=== PATIENT | female | born 1975 | race Caucasian/White ===

== ENCOUNTER 2016-08-09 10:30 | Emergency (ER) | payer OTHER ==
[~2016-08-09] VITALS: Ht 172.7 cm; Wt 90.9 kg
[2016-08-09 10:32] VITALS: BP 145/90; PULSE 92; RESP 24; TEMP 97.4; O2SAT 98
[2016-08-09 11:56] VITALS: BP 122/91; PULSE 88; RESP 18; O2SAT 100
[2016-08-09] MEDS ORDERED: SODIUM CHLOR 0.9% 1000 ML INJ 1,000 ML IV SCH (11:57)
[2016-08-09] MEDS ORDERED: ONDANSETRON HCL 4 MG/2 ML VIAL IVP ONE (12:00)
[2016-08-09] MEDS ORDERED: MORPHINE SULFATE 4 MG/ML INJ IV PUSH ONE (12:00)
[2016-08-09] MEDS ORDERED: SODIUM CHLORIDE 0.9% FLUSH 10 ML FLUSH IV FLUSH PRN (12:00)
--- NOTE | 2016-08-09 12:06 | PD ---
HPI Chief Complaint: Flank/Kidney Pain Time Seen by Provider: 11:50 Travel History International Travel<30 days: No Contact w/Intl Traveler<30days: No Traveled to known affect area: No History of Present Illness HPI The patient is a 41-year-old female who presents to the emergency department complaining of left flank pain. The patient states she developed left flank pain 1 week ago, had an outpatient CT of her abdomen and pelvis performed, however, does not know the results. The patient developed increasing left flank pain earlier today with nausea and vomiting. The pain is located over the left flank, radiates into the left groin, and is associated with mild dysuria. The patient states she had hematuria last week, denies any current hematuria. Patient's last menstrual cycle was 2 weeks ago, she denies . The patient's pain is moderate, sharp, without any alleviating or exacerbating factors. The patient's urologist is Dr. Stone. The patient does complain of clear vaginal discharge. PFSH Past Medical History Asthma: No Anxiety: Yes Depression: No Heart Rhythm Problems: No Cancer: Yes High Cholesterol: No Chemotherapy: No Chest Pain: No Congestive Heart Failure: No COPD: No Cerebrovascular Accident: No Diabetes: No (GESTATIONAL ONLY) Diminished Hearing: No Endocrine: Yes (HYPER PARATHYROID) Gastrointestinal Disorders: No GERD: No Genitourinary: Yes (KIDNEY STONES) Headaches: No Hepatitis: No Hiatal Hernia: No Hypertension: No Immune Disorder: No Implanted Vascular Access Dvce: No Kidney Stones: Yes Musculoskeletal: Yes (left shoulder sx) Neurologic: No Psychiatric: Yes (CLAUSTROPHOBIC) Reproductive: No Respiratory: Yes (CHILDHOOD ASTHMA) Immunizations Current: No Migraines: No Radiation Therapy: No Renal Failure: No Seizures: No Sleep Apnea: No Thyroid Disease: No Ulcer: No Tetanus Vaccination: < 5 Years Influenza Vaccination: No ?: Not LMP: 07/29/2016 Menopausal: No : 2 Para: 2 Miscarriage: 0 : 0 Past Surgical History Abdominal Surgery: No AICD: No Cardiac Surgery: No Ear Surgery: No Endocrine Surgery: Yes (parathyroid and half of thyroid removed) Eye Surgery: No Genitourinary Surgery: Yes (lithotripsy) Gynecologic Surgery: No Joint Replacement: No Neurologic Surgery: No Oral Surgery: Yes (TONSILLECTOMY) Pacemaker: No Thoracic Surgery: No Tonsillectomy: Yes Other Surgery: Yes (tonsilectomy ) Social History Alcohol Use: No Tobacco Use: No Substance Use: No Allergies-Medications (Allergen,Severity, Reaction): Coded Allergies: No Known Allergies (Unverified , 08/09/16) Reported Meds & Prescriptions Reported Meds & Active Scripts Active No Active Prescriptions or Reported Medications Review of Systems Except as stated in HPI: all other systems reviewed are Neg General / Constitutional: No: Fever Cardiovascular: No: Chest Pain or Discomfort Respiratory: No: Shortness of Breath Gastrointestinal: Positive: Nausea, Vomiting, Abdominal Pain, No: Diarrhea Genitourinary: Positive: Dysuria, Flank Pain Skin: No Rash Physical Exam Narrative GENERAL: Awake, alert, pleasant 41-year-old female who appears her stated age and is in no acute respiratory distress. SKIN: Focused skin assessment warm/dry. HEAD: Atraumatic. Normocephalic. EYES: Pupils equal and round. No scleral icterus. No injection or drainage. ENT: No nasal bleeding or discharge. Mucous membranes pink and moist. NECK: Trachea midline. No JVD. CARDIOVASCULAR: Regular rate and rhythm. No murmur appreciated. RESPIRATORY: No accessory muscle use. Clear to auscultation. Breath sounds equal bilaterally. GASTROINTESTINAL: Abdomen soft, mild tenderness left lower quadrant and left flank. No rebound tenderness. Back: Mild left CVA tenderness. MUSCULOSKELETAL: No obvious deformities. No clubbing. No cyanosis. No edema. NEUROLOGICAL: Awake and alert. No obvious cranial nerve deficits. Motor grossly within normal limits. Normal speech. PSYCHIATRIC: Appropriate mood and affect; insight and judgment normal. Data Data Last Documented VS Vital Signs Date Time Temp Pulse Resp B/P Pulse Ox O2 Delivery O2 Flow Rate FiO2 08/09/16 12:12 18 100 Room Air 08/09/16 11:56 88 122/91 08/09/16 10:32 97.4 Orders Complete Blood Count With Diff (08/09/16 11:57) Comprehensive Metabolic Panel (08/09/16 11:57) Lipase (08/09/16 11:57) Lactic Acid (08/09/16 11:57) Urinalysis - C+S If Indicated (08/09/16 11:57) Iv Access Insert/Monitor (08/09/16 11:57) Ecg Monitoring (08/09/16 11:57) Oximetry (08/09/16 11:57) Morphine Inj (Morphine Inj) (08/09/16 12:00) Ondansetron Inj (Zofran Inj) (08/09/16 12:00) Sodium Chlor 0.9% 1000 Ml Inj (Ns 1000 M (08/09/16 11:57) Sodium Chloride 0.9% Flush (Ns Flush) (08/09/16 12:00) Ed Urine Pregnancytest Poc (08/09/16 11:57) Abdomen, Kub Only (08/09/16 ) Labs Laboratory Tests Test 08/09/16 08/09/16 08/09/16 11:50 12:00 12:05 Urine Color COLORLESS Urine Turbidity CLEAR Urine pH 6.0 Urine Specific [place] 1.003 Urine Protein NEG mg/dL Urine Glucose (UA) NEG mg/dL Urine Ketones NEG mg/dL Urine Occult Blood NEG Urine Nitrite NEG Urine Bilirubin NEG Urine Urobilinogen LESS THAN 2.0 MG/DL Urine Leukocyte Esterase NEG Urine Squamous Epithelial <1 /hpf Cells Urine Mucus FEW /lpf Microscopic Urinalysis Comment CULT NOT INDICATED White Blood Count 11.6 TH/MM3 Red Blood Count 4.60 MIL/MM3 Hemoglobin 10.7 GM/DL Hematocrit 33.7 % Mean Corpuscular Volume 73.1 FL Mean Corpuscular Hemoglobin 23.3 PG Mean Corpuscular Hemoglobin 31.9 % Concent Red Cell Distribution Width 16.4 % Platelet Count 355 TH/MM3 Mean Platelet Volume 7.6 FL Neutrophils (%) (Auto) 80.6 % Lymphocytes (%) (Auto) 13.3 % Monocytes (%) (Auto) 5.3 % Eosinophils (%) (Auto) 0.5 % Basophils (%) (Auto) 0.3 % Neutrophils # (Auto) 9.3 TH/MM3 Lymphocytes # (Auto) 1.5 TH/MM3 Monocytes # (Auto) 0.6 TH/MM3 Eosinophils # (Auto) 0.1 TH/MM3 Basophils # (Auto) 0.0 TH/MM3 CBC Comment AUTO DIFF Differential Comment AUTO DIFF CONFIRMED Platelet Estimate NORMAL Platelet Morphology Comment ENLARGED Ovalocytes 1+ Sodium Level 139 MEQ/L Potassium Level 3.7 MEQ/L Chloride Level 107 MEQ/L Carbon Dioxide Level 23.9 MEQ/L Anion Gap 8 MEQ/L Blood Urea Nitrogen 9 MG/DL Creatinine 0.76 MG/DL Estimat Glomerular Filtration 84 ML/MIN Rate Random Glucose 89 MG/DL Calcium Level 8.9 MG/DL Total Bilirubin 0.3 MG/DL Aspartate Amino Transf 30 U/L (AST/SGOT) Alanine Aminotransferase 42 U/L (ALT/SGPT) Alkaline Phosphatase 55 U/L Total Protein 7.0 GM/DL Albumin 3.7 GM/DL Lipase 161 U/L Lactic Acid Level 0.9 mmol/L MDM Medical Decision Making Medical Screen Exam Complete: Yes Emergency Medical Condition: Yes Medical Record Reviewed: Yes Interpretation(s) CT abdomen and pelvis without contrast performed August 02, 2016 reveals bilateral less than 4 mm calcified renal stones unchanged in appearance and size when compared to prior renal colic CT March 25, 2016. No evidence of hydronephrosis. Laboratory Tests Test 08/09/16 08/09/16 08/09/16 11:50 12:00 12:05 Urine Color COLORLESS Urine Turbidity CLEAR Urine pH 6.0 Urine Specific [place] 1.003 Urine Protein NEG mg/dL Urine Glucose (UA) NEG mg/dL Urine Ketones NEG mg/dL Urine Occult Blood NEG Urine Nitrite NEG Urine Bilirubin NEG Urine Urobilinogen LESS THAN 2.0 MG/DL Urine Leukocyte Esterase NEG Urine Squamous Epithelial <1 /hpf Cells Urine Mucus FEW /lpf Microscopic Urinalysis Comment CULT NOT INDICATED White Blood Count 11.6 TH/MM3 Red Blood Count 4.60 MIL/MM3 Hemoglobin 10.7 GM/DL Hematocrit 33.7 % Mean Corpuscular Volume 73.1 FL Mean Corpuscular Hemoglobin 23.3 PG Mean Corpuscular Hemoglobin 31.9 % Concent Red Cell Distribution Width 16.4 % Platelet Count 355 TH/MM3 Mean Platelet Volume 7.6 FL Neutrophils (%) (Auto) 80.6 % Lymphocytes (%) (Auto) 13.3 % Monocytes (%) (Auto) 5.3 % Eosinophils (%) (Auto) 0.5 % Basophils (%) (Auto) 0.3 % Neutrophils # (Auto) 9.3 TH/MM3 Lymphocytes # (Auto) 1.5 TH/MM3 Monocytes # (Auto) 0.6 TH/MM3 Eosinophils # (Auto) 0.1 TH/MM3 Basophils # (Auto) 0.0 TH/MM3 CBC Comment AUTO DIFF Differential Comment AUTO DIFF CONFIRMED Platelet Estimate NORMAL Platelet Morphology Comment ENLARGED Ovalocytes 1+ Sodium Level 139 MEQ/L Potassium Level 3.7 MEQ/L Chloride Level 107 MEQ/L Carbon Dioxide Level 23.9 MEQ/L Anion Gap 8 MEQ/L Blood Urea Nitrogen 9 MG/DL Creatinine 0.76 MG/DL Estimat Glomerular Filtration 84 ML/MIN Rate Random Glucose 89 MG/DL Calcium Level 8.9 MG/DL Total Bilirubin 0.3 MG/DL Aspartate Amino Transf 30 U/L (AST/SGOT) Alanine Aminotransferase 42 U/L (ALT/SGPT) Alkaline Phosphatase 55 U/L Total Protein 7.0 GM/DL Albumin 3.7 GM/DL Lipase 161 U/L Lactic Acid Level 0.9 mmol/L Last Impressions Abdomen X-Ray 08/09/16 0000 Signed Impressions: Service Date/Time: Tuesday, August 09, 2016 12:29 - CONCLUSION: There are some calcifications within the pelvis which are felt to represent phlebolith. No definite stones are seen. The exam is otherwise unremarkable. Alexei Andres MD Differential Diagnosis Differential diagnosis includes renal colic, nephrolithiasis, hydronephrosis, UTI, PID, cervicitis, ectopic , diverticulitis. Narrative Course IV was established, labs were drawn and sent, and the patient was placed on cardiac telemetry monitoring and continuous pulse oximetry monitoring. I reviewed the patient's CT of the abdomen and pelvis was performed on August 02, 2016, no significant changes when compared to CT that was performed in March. Patient's UA was sent to lab. Bedside test was obtained. KUB was ordered. The patient was administered morphine, Zofran, and IV fluids. The patient's UA was negative. Labs are unremarkable. Lactic acid is normal. KUB reveals no obvious stone. The patient states she is going to see Dr. Stone, she wants her stones removed, because they're causing her nausea. I offered to write the patient a prescription for Zofran ODT or Phenergan by mouth/AR , however, the patient states those medications do not work for her. Therefore, patient will be discharged with a copy of her labs and x-ray results , she is advised to follow-up with her urologist. I offered to perform a pelvic examination to culture the discharge, case this is the cause of her symptoms, however, she did not want a pelvic examination or cultures obtained. Diagnosis Primary Impression: Left flank pain Patient Instructions: General Instructions Additional Instructions: Please provide the patient a copy of her x-ray results and lab results at discharge. Follow-up with urology. Return if symptoms worsen or progress. Med/Other Pt SpecificInfo: No Change to Meds Scripts No Active Prescriptions or Reported Meds Disposition: 01 DISCHARGE HOME Condition: Stable Leo Perdomo MD August 09, 2016 12:05
[2016-08-09 12:12] VITALS: RESP 18; O2SAT 100
[2016-08-09 12:37] LABS: AUTOMATED NEUTROPHIL # 9.3 TH/MM3 (1.8-7.7); BASOPHIL % 0.3 % (0.0-2.0); EOSINOPHIL # 0.1 TH/MM3 (0-0.4); EOSINOPHIL % 0.5 % (0.0-4.0); HEMATOCRIT 33.7 % (35.0-46.0); LYMPH % 13.3 % (9.0-44.0); LYMPHOCYTE # 1.5 TH/MM3 (1.0-4.8); MEAN CELL VOLUME 73.1 FL (80.0-100.0); MEAN CORPUSCULAR HEMOGLOBIN 23.3 PG (27.0-34.0); MEAN CORPUSCULAR HGB CONC 31.9 % (32.0-36.0); MONO % 5.3 % (0.0-8.0); NEUT % 80.6 % (16.0-70.0); PLATELET COUNT 355 TH/MM3 (150-450); RED CELL DISTRIBUTION WIDTH 16.4 % (11.6-17.2); WHITE BLOOD COUNT 11.6 TH/MM3 (4.0-11.0)
[2016-08-09 12:39] LABS: BLOOD, URINE NEG (NEG); COMMENT (UR) CULT NOT INDICATED; CULTURE IF INDICATED CULT NOT INDICATED; GLUCOSE,URINE NEG (NEG); KETONE, URINE NEG (NEG); MUCUS URINE FEW /lpf (OCC); NITRITE,URINE NEG (NEG); SQUAMOUS EPITHELIAL CELL URINE <1 /hpf (0-5); URINE COLOR COLORLESS (YELLW/STRAW)
[2016-08-09 12:41] LABS: HEMO FLAGS AUTO DIFF
[2016-08-09 13:04] LABS: ALT (GPT) 42 U/L (10-53); ANION GAP 8 MEQ/L (5-15); AST (GOT) 30 U/L (15-37); BICARBONATE 23.9 MEQ/L (21.0-32.0); BLOOD UREA NITROGEN 9 MG/DL (7-18); CHLORIDE 107 MEQ/L (98-107); GLOMERULAR FILTRATION RATE 84 ML/MIN (>89); POTASSIUM 3.7 MEQ/L (3.5-5.1); SODIUM (NA) 139 MEQ/L (136-145)
[2016-08-09 13:06] LABS: ALKALINE PHOSPHATASE 55 U/L (45-117); TOTAL BILIRUBIN ADULT 0.3 MG/DL (0.2-1.0)
--- NOTE | 2016-08-09 13:15 | RADRPT ---
EXAM DATE/TIME: 08/09/2016 12:29 [facility] COMPARISON: CT ABDOMEN & PELVIS W/O CONTRAST, March 25, 2016, 8:02. FOOT LEFT COMPLETE ([id number]), July 27, 016, 16:48. INDICATIONS : Kidney stones left and right side. Prior lithotripsy and stents bilaterally. MEDICAL HISTORY : Renal calculi. Hypothyroidism. SURGICAL HISTORY : Lithotripsy bilaterally. ENCOUNTER: Initial ACUITY: 4 - 6 days PAIN SCORE: 10/10 LOCATION: Bilateral abdomen. FINDINGS: Supine view of the abdomen was performed. The abdominal bowel gas pattern is normal. No abnormal ma sses, calcifications, or organomegaly is seen. There are some calcifications in the pelvis which are felt to represent phlebolith. The osseous structures are unremarkable. CONCLUSION: There are some calcifications within the pelvis which are felt to represent phlebolith. No definite s tones are seen. The exam is otherwise unremarkable. Alexei Andres MD on August 09, 2016 at 13:09 Board Certified Radiologist. This report was verified electronically.
[2016-08-09 13:16] LABS: OVALOCYTES 1+ (NORMAL); PLATELET ESTIMATE SMEAR NORMAL (NORMAL); PLATELET MORPHOLOGY ENLARGED (NORMAL); SCAN/DIFF AUTO DIFF CONFIRMED
[2016-08-09 14:02] VITALS: BP 132/78; PULSE 78; RESP 18; O2SAT 100
[2016-08-09] MEDS ORDERED: REGL10TA5 PO (22:59)
[2016-08-09] MEDS ORDERED: HYDR-3533 PO (22:59)
== END 2016-08-09 14:10 | disposition home or self-care (01) ==
LOC: NEPD 10:30
DX: R10.32 Left lower quadrant pain (principal); Z87.442 Personal history of urinary calculi
CPT/HCPCS: 74000; 80053; 81001; 83605; 83690; 84703; 85025; 96361; 96374; 96375; 99284; J2270; J2405; J7030

== ENCOUNTER 2016-08-09 19:08 | Emergency (ER) | payer OTHER ==
[~2016-08-09] VITALS: Ht 172.7 cm; Wt 91.6 kg
[2016-08-09 19:28] VITALS: BP 135/98; PULSE 82; RESP 20; TEMP 97.6; O2SAT 100
[2016-08-09 19:42] VITALS: BP 135/98; PULSE 82; RESP 20; TEMP 97.6; O2SAT 100
[2016-08-09] MEDS ORDERED: KETOROLAC TROMETHAMINE 30 MG/ML (IVP) VIAL IV PUSH ONE (19:45)
[2016-08-09] MEDS ORDERED: SODIUM CHLOR 0.9% 1000 ML INJ 1,000 ML IV ONE (19:45)
[2016-08-09] MEDS ORDERED: SODIUM CHLORIDE 0.9% FLUSH 10 ML FLUSH IV FLUSH PRN (19:45)
[2016-08-09] MEDS ORDERED: ONDANSETRON HCL 4 MG/2 ML VIAL IV PUSH ONE (19:45)
[2016-08-09 19:51] VITALS: BP 138/77; PULSE 83; RESP 18; O2SAT 98
[2016-08-09 20:10] VITALS: RESP 18; O2SAT 98
--- NOTE | 2016-08-09 20:53 | PD ---
HPI Chief Complaint: Abdominal Pain Time Seen by Provider: 19:41 Travel History International Travel<30 days: No Contact w/Intl Traveler<30days: No Traveled to known affect area: No History of Present Illness HPI 41-year-old female presents to the emergency department for complaint of left lower quadrant abdominal pain. Patient is been seen several times over the past few months by urologist Dr. Stone for ongoing issues with bilateral nephrolithiasis and episodes of ureterolithiasis. Patient recently underwent outpatient CT which revealed bilateral nephrolithiasis without any involvement of hydroureter or bladder stones. Patient is continued to have ongoing abdominal pain. Patient was seen earlier today in the emergency department at [facility] and underwent blood work at that time revealed a white count of 11,600 but otherwise chemistries urinalysis and [id number] tests were all within normal range or negative. Patient's had no fever or chills. Patient states today she could not take ibuprofen as she had multiple episodes of vomiting and prescriptions for Zofran and Phenergan have not provided any effective antiemetic effect. Patient states she did not contact her urologist. Patient was encouraged to undergo pelvic exam with her initial evaluation earlier today but declined to do so and because she has ongoing pain has come to the emergency room now to complete her evaluation. Patient voices no new complaints or concerns. Pain is 4/10. PFSH Past Medical History Narrative Medical Anxiety, kidney stones, claustrophobia, tonsillectomy, partial thyroidectomy and parathyroidectomy; no tobacco use; nursing notes reviewed Asthma: No Anxiety: Yes Depression: No Heart Rhythm Problems: No Cancer: Yes High Cholesterol: No Chemotherapy: No Chest Pain: No Congestive Heart Failure: No COPD: No Cerebrovascular Accident: No Diminished Hearing: No Endocrine: Yes (HYPER PARATHYROID) Gastrointestinal Disorders: No GERD: No Genitourinary: Yes (KIDNEY STONES) Headaches: No Hepatitis: No Hiatal Hernia: No Hypertension: No Immune Disorder: No Implanted Vascular Access Dvce: No Kidney Stones: Yes Musculoskeletal: Yes (left shoulder sx) Neurologic: No Psychiatric: Yes (CLAUSTROPHOBIC) Reproductive: No Respiratory: Yes (CHILDHOOD ASTHMA) Immunizations Current: No Migraines: No Radiation Therapy: No Renal Failure: No Seizures: No Sleep Apnea: No Thyroid Disease: No Ulcer: No ?: Unknown Menopausal: No : 2 Para: 2 Miscarriage: 0 : 0 Past Surgical History Abdominal Surgery: No AICD: No Cardiac Surgery: No Ear Surgery: No Endocrine Surgery: Yes (parathyroid and half of thyroid removed) Eye Surgery: No Genitourinary Surgery: Yes (lithotripsy) Gynecologic Surgery: No Joint Replacement: No Neurologic Surgery: No Oral Surgery: Yes (TONSILLECTOMY) Pacemaker: No Thoracic Surgery: No Tonsillectomy: Yes Other Surgery: Yes (tonsilectomy ) Social History Alcohol Use: Yes (socially) Tobacco Use: No Substance Use: No Allergies-Medications (Allergen,Severity, Reaction): Coded Allergies: No Known Allergies (Unverified , 08/09/16) Reported Meds & Prescriptions Reported Meds & Active Scripts Active No Active Prescriptions or Reported Medications Narrative Medication phenergan zofran Review of Systems Except as stated in HPI: all other systems reviewed are Neg General / Constitutional: No: Fever, Chills HENT: Positive: Headaches, No: Congestion, Neck Stiffness, Neck Pain Cardiovascular: No: Chest Pain or Discomfort Respiratory: No: Shortness of Breath Gastrointestinal: Positive: Nausea, Vomiting, Abdominal Pain Genitourinary: Positive: Flank Pain Musculoskeletal: No: Myalgias, Arthralgias Skin: No Rash Neurologic: No: Weakness, Dizziness, Syncope, Focal Abnormalities, Coordination Problem Psychiatric: No: Anxiety Hematologic/Lymphatic: No: Lymph Node Enlargement Physical Exam Narrative GENERAL: Well-developed well-nourished female in no acute distress no respiratory distress SKIN: Warm and dry. HEAD: Normocephalic. EYES: No scleral icterus. No injection or drainage. NECK: Supple, trachea midline. No JVD or lymphadenopathy. CARDIOVASCULAR: Regular rate and rhythm without murmurs, gallops, or rubs. RESPIRATORY: Breath sounds equal bilaterally. No accessory muscle use. GASTROINTESTINAL: Abdomen soft, mild left lower quadrant tenderness to direct palpation without guarding or rebound, nondistended. MUSCULOSKELETAL: No cyanosis, or edema. BACK: Nontender without obvious deformity. Reproducible left CVA tenderness. Data Data Last Documented VS Vital Signs Date Time Temp Pulse Resp B/P Pulse Ox O2 Delivery O2 Flow Rate FiO2 08/09/16 21:38 82 18 138/77 94 Room Air 08/09/16 19:42 97.6 Orders Iv Access Insert/Monitor (08/09/16 19:41) Ecg Monitoring (08/09/16 19:41) Oximetry (08/09/16 19:41) Sodium Chloride 0.9% Flush (Ns Flush) (08/09/16 19:45) Wet Prep Profile (08/09/16 19:41) Ondansetron Inj (Zofran Inj) (08/09/16 19:45) Ketorolac Inj (Toradol Inj) (08/09/16 19:45) Sodium Chlor 0.9% 1000 Ml Inj (Ns 1000 M (08/09/16 19:45) Urinalysis - C+S If Indicated (08/09/16 20:47) Ed Urine Pregnancytest Poc (08/09/16 22:16) Labs Laboratory Tests Test 08/09/16 08/09/16 20:40 21:15 Clue Cells (Wet Prep) NONE SEEN Vaginal Trichomonas (Wet Prep) NONE SEEN Vaginal Yeast (Wet Prep) NONE SEEN Urine Color YELLOW Urine Turbidity CLEAR Urine pH 7.5 Urine Specific [place] 1.007 Urine Protein NEG mg/dL Urine Glucose (UA) NEG mg/dL Urine Ketones NEG mg/dL Urine Occult Blood NEG Urine Nitrite NEG Urine Bilirubin NEG Urine Leukocyte Esterase NEG Urine WBC 0-2 /hpf Urine Squamous Epithelial 0-5 /hpf Cells Microscopic Urinalysis Comment CULT NOT INDICATED MDM Medical Decision Making Medical Screen Exam Complete: Yes Emergency Medical Condition: Yes Medical Record Reviewed: Yes Interpretation(s) UA: wnl wet prep: negative POC hcg: negative Differential Diagnosis Renal colic, UTI, pyelonephritis, ovarian cyst, Narrative Course Patient was just seen less than 6 hours ago at [facility] had refused pelvic exam and presents now to have pelvic exam no vaginal bleeding no vaginal discharge denies and is in the process of still being evaluated and treated by her urologist for recurrent kidney stones. Patient is out of her pain medication. Patient presents because of nausea and vomiting. Patient states prescription Phenergan and Zofran has not provided her any relief of her nausea and vomiting. Patient had good nausea and vomiting at [facility] after IV Zofran Plan is to perform a pelvic exam, administered Toradol 30 mg IV Zofran 4 mg IV and IV fluid bolus as well as obtain a [id number] hCG urinalysis and click specimen for wet prep After Toradol pain has decreased down to 2/10 in intensity nausea has resolved after Zofran Patient's was not producing urine receiving IV fluid bolus [id number] hCG negative wet prep negative patient is able take oral hydration and urinalysis is normal Patient is stable for outpatient management and close follow-up with your urologist will be given prescription for Lortab, refill; and Reglan for complaint of nausea vomiting. Diagnosis Primary Impression: Left flank pain Patient Instructions: General Instructions Additional Instructions: Increase fluid hydration recommend clear liquid diet for next 12-24 hours advance as tolerated to bland/Malika diet then regular diet Use Reglan as prescribed as needed for nausea and/or vomiting not controlled by Zofran do not take this medication if using Phenergan Take pain medication as prescribed as needed for pain greater than 6/10 in intensity Take ibuprofen 800 mg as prescribed as needed for pain greater than 5/10 in intensity Follow-up with your urologist call office in a.m. Return to the emergency department for any concerns or change in condition Med/Other Pt SpecificInfo: Prescription(s) given Scripts Hydrocodone-Acetaminophen (Lortab)5-325 Mg Tab1 Tab PO Q6H PRN (PAIN) #10 TAB Ref 0 Prov:Helen Huertas MD 08/09/16 Metoclopramide (Reglan)10 Mg Tab10 Mg PO Q6HR PRN (NAUSEA OR VOMITING) #7 TAB Ref 0 Prov:Helen Huertas MD 08/09/16 Disposition: 01 DISCHARGE HOME Condition: Stable Helen Huertas MD August 09, 2016 20:53
[2016-08-09 21:28] LABS: BLOOD, URINE NEG (NEG); GLUCOSE,URINE NEG (NEG); KETONE, URINE NEG (NEG); NITRITE,URINE NEG (NEG); PH, URINE 7.5 (5.0-8.5)
[2016-08-09 21:38] VITALS: BP 138/77; PULSE 82; RESP 18; O2SAT 94
[2016-08-09 21:56] LABS: URINE COLOR YELLOW (YELLW/STRAW)
[2016-08-09 22:01] LABS: COMMENT (UR) CULT NOT INDICATED; CULTURE IF INDICATED CULT NOT INDICATED; SQUAMOUS EPITHELIAL CELL URINE 0-5 /hpf (0-5); WBC, URINE 0-2 /hpf (0-5)
[2016-08-09] MEDS ORDERED: REGL10TA5 PO (22:59)
[2016-08-09] MEDS ORDERED: HYDR-3533 PO (22:59)
[2016-08-09 23:08] VITALS: BP 137/84; PULSE 82; RESP 18; O2SAT 97
== END 2016-08-09 23:08 | disposition home or self-care (01) ==
LOC: PHED 19:08
DX: R10.32 Left lower quadrant pain (principal)
CPT/HCPCS: 81001; 84703; 87210; 96361; 96374; 96375; 99284; J1885; J2405; J7030